=== PATIENT | male | born 1985 | race African-American/Black ===

== ENCOUNTER 2018-12-02 21:38 | Emergency (ER) | payer MEDICAID ==
[2018-12-02 21:46] VITALS: BP 153/92
--- NOTE | 2018-12-02 22:20 | EDPHY ---
H & P Stated Complaint: Chronic LLE Ulcer - Floowed by [facility] Time Seen by Provider: 12/02/18 21:47 HPI/ROS: CHIEF COMPLAINT: Left pretibial diabetic wound HISTORY OF PRESENT ILLNESS: 33-year-old be some a diabetic male currently living at the [place], moved to [facility], relief fall at [facility], follow-up the [facility] for a left pretibial wound for the past 1 year, most recently debrided 3 days ago, complaining of pretibial wound pain for the past 1 year. Upset that he received prescriptions for analgesia by his PCP. He acute injury. Denies acute symptomatology. PRIMARY CARE PROVIDER: REVIEW OF SYSTEMS: 10 systems reviewed and negative with the exception of the elements mentioned in the history of present illness PAST MEDICAL & SURGICAL HISTORY: Diabetes SOCIAL HISTORY:Currently living at the [facility] PHYSICAL EXAM (Prior to examination, patient consented to physical exam, hands were washed and my usual and customary physical exam procedures followed) 1) GENERAL: obese, alert and oriented. Appears to be in no acute distress. Occurred ambulance stable steady gait from the ambulate his room. 2) HEAD: Normocephalic, atraumatic 3) HEENT: Pupils equal, round, reactive to light bilaterally. Sclera anicteric. 4) NECK: Full range of motion, no meningeal signs. 5) LUNGS: Clear auscultation bilaterally, no wheezes, no rhonchi, no retractions. 6) HEART: Regular rate and rhythm, no murmur, no heave, no gallop. 7) ABDOMEN: No guarding, no rebound, no focal tenderness, negative McBurney's, negative Herrera's, negative Rovsing's, negative peritoneal sign, 8) MUSCULOSKELETAL: Left lower extremity: Left pretibial wound which is granulating appropriately with no signs of acute infection, no fetid odor, no crepitus, soft compartments, no lymphangitic streaking, no proximal distal pain. 9) BACK: No CVA tenderness, no midline vertebral tenderness, no fluctuance, no step-off, no obvious trauma, no visual or palpable abnormality. 10) SKIN: No rash, no petechiae. 11) Psychiatric: Patient is oriented X 3, there is no agitation. DIFFERENTIAL DIAGNOSIS: In no particular order including but not limited to diabetic wound, cellulitis, osteomyelitis necrotizing fasciitis in a DVT - Personal History Current Tetanus Diphtheria and Acellular Pertussis (TDAP): Yes - Medical/Surgical History Hx Asthma: No Hx Chronic Respiratory Disease: No Hx Diabetes: Yes Hx Cardiac Disease: No Hx Renal Disease: No Hx Cirrhosis: No Hx Alcoholism: No Hx HIV/AIDS: No Hx Splenectomy or Spleen Trauma: No Other PMH: DM, HTN - Social History Smoking Status: Heavy smoker Constitutional: Initial Vital Signs Temperature (C) 36.6 C 12/02/18 21:44 Heart Rate 108 H 12/02/18 21:44 Respiratory Rate 20 12/02/18 21:44 Blood Pressure 153/92 H 12/02/18 21:44 O2 Sat (%) 96 12/02/18 21:44 O2 Delivery Mode Room Air Allergies/Adverse Reactions: No Known Allergies Allergy (Unverified 12/02/18 21:43) Home Medications: Medication Instructions Recorded Glipizide 12/02/18 HCTZ (*) 12/02/18 Lisinopril 12/02/18 Metformin HCl 12/02/18 Medical Decision Making ED Course/Re-evaluation: 10:20 p.m.: I have reviewed this patient's old medical records. I have performed serial exams on this patient. I think that DVT, necrotizing fasciitis , is osteomyelitis, less than likely in this patient. I empathized with his ongoing symptoms. I have agreed to give him a single take-home pack of [place] . Recommend he follow up with his wound care clinic and/or [facility] as he is now newly moved to [place]. This time I do not think that further diagnostic studies or imaging studies or hospitalization is indicated. He feels comfortable being discharged. Patient feels comfortable being discharged. All questions and concerns addressed by myself. Patient given my usual and customary discharge precautions and instructions regarding their clinical impression. Care of patient under supervision of secondary supervising physician Dr Perkins . 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 Referrals: [facility],. [Clinic] - As per Instructions
[2018-12-02] MEDS ORDERED: HYDROCOD/APAP 5/325 PREPACK#6 BTL TAKEHOME ONE (22:22)
== END 2018-12-02 22:35 | disposition home or self-care (01) ==
LOC: EDUNIT#
DX: L97.821 Non-pressure chronic ulcer of other part of left lower leg limited to breakdown of skin (principal); E11.622 Type 2 diabetes mellitus with other skin ulcer; I10 Essential (primary) hypertension; F17.200 Nicotine dependence, unspecified, uncomplicated; Z79.84 Long term (current) use of oral hypoglycemic drugs

== ENCOUNTER → 2019-01-16 | Outpatient (CLI) | payer MEDICAID | LOC: FIMAGING 08:24 | PROVIDERS: ATTEND Radiology Diagnostic Radiology | DX: I87.2 Venous insufficiency (chronic) (peripheral) (principal); L97.821 Non-pressure chronic ulcer of other part of left lower leg limited to breakdown of skin ==

== ENCOUNTER 2019-02-15 11:14 | Day surgery (SDC) | payer MEDICAID ==
[2019-02-15] MEDS ORDERED: MIDAZOLAM 2 MG/2 ML VIAL IVP PRN (11:27)
[2019-02-15] MEDS ORDERED: fentaNYL 100 MCG/2 ML INJ IVP PRN (11:27)
[2019-02-15] MEDS ORDERED: ONDANSETRON 4 MG/2 ML VIAL IVP ONE (11:27)
[2019-02-15] MEDS ORDERED: NS 1,000 ML IV ONE (11:27)
[2019-02-15] MEDS ORDERED: FLUMAZENIL 0.5 MG/5 ML MDV IVP PRN (11:27)
[2019-02-15] MEDS ORDERED: NALOXONE HCL 0.4 MG/ML INJ IVP PRN (11:27)
[2019-02-15] MEDS ORDERED: fentaNYL 100 MCG/2 ML INJ ONE ×2 (12:30→14:06)
[2019-02-15] MEDS ORDERED: MIDAZOLAM 2 MG/2 ML VIAL ONE ×2 (12:30→14:06)
[2019-02-15] MEDS ORDERED: NALOXONE HCL 0.4 MG/ML INJ ONE (12:30)
[2019-02-15] MEDS ORDERED: FLUMAZENIL 0.5 MG/5 ML MDV IVP ONE (12:30)
[2019-02-15] MEDS ORDERED: SODIUM TETRADECYL SULFATE 3% 2 ML VIAL IV ONE (12:31)
[2019-02-15] MEDS ORDERED: LIDO/EPI 1% **for epidural** 30 ML SDV ONE (12:31)
[2019-02-15] MEDS ORDERED: LIDOCAINE 1% 5 ML SDV ONE (12:31)
--- NOTE | 2019-02-15 13:07 | PDGENHP ---
History & Physical Chief Complaint: LLE ULCER History of Present Illness: ACTIVE LLE ULCER. MIGHT NEED SKIN GRAFTING. Pertinent Past, Social, Family History: HEAVY SMOKER. ATHMA Relevant Physical Exam: PALM SIZED ULCER Cardiorespiratory Assessment: RRR, CTA
--- NOTE | 2019-02-15 13:09 | PDPROPOC ---
Sedation Plan of Care Sedation Plan of Care: vital signs stable, mental status noted, patient educated of risks, benefits, alternatives, patient can tolerate sedation ASA Classification: ASA 3 Planned drugs: fentanyl, midazolam Mallampati Score: Class 1 Mallampati Reference Image: Patient passed 3-3-2 rule?: Yes
[2019-02-15] MEDS ORDERED: HYDROCODONE/APAP 5/325 TAB PO PRN (14:54)
[2019-02-15] MEDS ORDERED: ONDANSETRON DISINTEGRATING 4 MG TAB PO PRN (14:54)
[2019-02-15] MEDS ORDERED: IBUPROFEN 200 MG TAB PO ONE (14:54)
[2019-02-15] MEDS ORDERED: ONDANSETRON 4 MG/2 ML VIAL IVP PRN (14:54)
--- NOTE | 2019-02-15 14:55 | PDRADPN ---
Radiology Procedure Note Date of Procedure: 02/15/19 Radiologist: Edna Curran Anesthesia: IV Sedation Pre-op Diagnosis: LLE ULCER Post-op Diagnosis: SAME Indication: ACTIVE ULCER WITH VENOUS INSUFFICIENCY Procedure: ABLATION AND SCLEROTHERAPY Inf/Abcess present in the surg proc area at time of surgery?: No
[2019-02-15] MEDS ORDERED: NS 1,000 ML IV SCH (15:00)
[2019-02-15 15:49] VITALS: BP 141/73
== END 2019-02-15 15:48 | disposition home or self-care (01) ==
LOC: FIMAGING 11:14
PROVIDERS: ATTEND Radiology Diagnostic Radiology
DX: I83.022 Varicose veins of left lower extremity with ulcer of calf (principal); I83.222 Varicose veins of left lower extremity with both ulcer of calf and inflammation; L97.229 Non-pressure chronic ulcer of left calf with unspecified severity
CPT/HCPCS: 36471; 36478; 36479; 76937; 99152; 99153; C1769; C1894; J2250; J2310; J3010